=== PATIENT | female | born 1960 | race Caucasian/White ===

== ENCOUNTER → 2023-10-12 08:44 | Outpatient (REF) | payer OTHER, SELFPAY | LOC: RAD 08:44 | PROVIDERS: ATTENDING PHYSICIAN Internal Medicine Cardiovascular Disease | DX: R06.09 Other forms of dyspnea (principal); I10 Essential (primary) hypertension; R94.39 Abnormal result of other cardiovascular function study | CPT/HCPCS: 75574; Q9967 ==

== ENCOUNTER → 2025-03-21 10:42 | Outpatient (REF) | payer BC, SELFPAY | LOC: HWWDC 10:42 | PROVIDERS: ATTENDING PHYSICIAN Family Medicine | DX: Z12.31 Encounter for screening mammogram for malignant neoplasm of breast (principal) | CPT/HCPCS: 77063; 77067 ==